=== PATIENT | male | born 1955 ===

== ENCOUNTER 2021-02-26 16:46 | Emergency (ER) | payer SELFPAY ==
[~2021-02-26] VITALS: Ht 182.9 cm; Wt 102.1 kg
== END 2021-02-26 19:19 | disposition left against medical advice (07) ==
LOC: ER 16:46
DX: K59.00 Constipation, unspecified (principal); Z53.21 Procedure and treatment not carried out due to patient leaving prior to being seen by health care provider
CPT/HCPCS: 74022; 99283-25

== ENCOUNTER → 2022-06-12 | Outpatient (CLI) | payer OTHER | LOC: PLD 07:24 → LAB SHORT 07:24 | DX: L57.0 Actinic keratosis (principal) | CPT/HCPCS: 88305 ==